=== PATIENT | female | born 1950 | race Caucasian/White ===

== ENCOUNTER 2016-12-25 09:53 | Day surgery (SDC) | payer MEDICARE, OTHER ==
[~2016-12-25 09:53] MED LIST: ACETAMINOPHEN 325 MG TABLET PO PRN; ACETYLCHOLINE CHLORIDE 20 DROP KIT IO PRN; BUPIVACAINE HCL/PF 30 ML VIAL IJ PRN; CYCLOPENTOLATE HCL 20 DROP BTL LEFTEYE PRN; DEXTROSE 5%-0.5 NORMAL SALINE 1,000 ML IV PRN; EPINEPHrine 1 MG/ML AMPUL IO PRN; HYALURONATE SODIUM 0.4 ML DISP.SYRIN IO PRN; HYALURONATE SODIUM 0.85 ML DISP.SYRIN IO PRN; LIDOCAINE HCL/PF 200 MG/5 ML AMPUL TP PRN; LIDOCAINE HCL/PF 5 ML VIAL IO PRN; NORMAL SALINE 3 ML BOX IV PRN; TETRACAINE HCL 150 DROP BTL OP PRN
[2016-12-25] MEDS: TROPICAMIDE 150 DROP BTL LEFTEYE PRN ×3 (10:35→11:02)
[2016-12-25] MEDS: PHENYLEPHRINE HCL 50 DROP BTL LEFTEYE PRN ×3 (10:35→11:02)
[2016-12-25] MEDS ORDERED: DEXTROSE 5%-0.5 NORMAL SALINE 1,000 ML IV ONE (10:56)
[2016-12-25 12:38] VITALS: BP 119/76
== END 2016-12-25 09:54 | disposition home or self-care (01) ==
LOC: AMB 09:53
PROVIDERS: ATTEND Ophthalmology
PROC: 08RK3JZ Replacement of Left Lens with Synthetic Substitute, Percutaneous Approach (ICD-10-PCS; principal; 2016-12-25 11:20)
DX: H26.9 Unspecified cataract (principal); Z68.30 Body mass index [BMI] 30.0-30.9, adult

== ENCOUNTER 2017-01-08 09:30 | Day surgery (SDC) | payer MEDICARE, OTHER ==
[~2017-01-08 09:30] MED LIST changes: -CYCLOPENTOLATE HCL 20 DROP BTL LEFTEYE PRN; +CYCLOPENTOLATE HCL 20 DROP BTL RIGHTEYE PRN
[2017-01-08] MEDS: PHENYLEPHRINE HCL 50 DROP BTL RIGHTEYE PRN ×2 (10:16→10:39)
[2017-01-08] MEDS: TROPICAMIDE 150 DROP BTL RIGHTEYE PRN ×2 (10:16→10:39)
[2017-01-08] MEDS ORDERED: PHENYLEPHRINE HCL 50 DROP BTL RIGHTEYE ONE (10:49)
[2017-01-08] MEDS ORDERED: TROPICAMIDE 150 DROP BTL RIGHTEYE ONE (10:49)
[2017-01-08 12:55] VITALS: BP 115/70
== END 2017-01-08 09:31 | disposition home or self-care (01) ==
LOC: AMB 09:30
PROVIDERS: ATTEND Ophthalmology
PROC: 08RJ3JZ Replacement of Right Lens with Synthetic Substitute, Percutaneous Approach (ICD-10-PCS; principal; 2017-01-08 10:40)
DX: H26.9 Unspecified cataract (principal); Z68.30 Body mass index [BMI] 30.0-30.9, adult